=== PATIENT | male | born 1955 | race Caucasian/White ===

== ENCOUNTER 2018-08-04 17:39 | Inpatient (IN) | payer OTHER ==
[~2018-08-04] VITALS: Ht 175.3 cm; Wt 101.6 kg
--- NOTE | ~2018-08-04 | CON ---
[address] [address] CONSULTATION Name: NIMO VILLEDA Room: [address] IN .R.#: [id number] Admission: 08/04/18 Attend Phys: Lilian Thompson MD Discharge: 08/05/18 Date of : 57 Report #: [id number] THIS REPORT FOR: //name// CC: Mohamud Thompson TYPE OF REPORT: Cardiology consultation. INDICATION: Elevated troponin. HISTORY OF PRESENT ILLNESS: The patient is a 62-year-old gentleman who was admitted with left flank pain. He has a history of prostate cancer, hepatic cirrhosis, renal mass and alcohol abuse. During his hospitalization, troponins were checked. The initial troponin was less than 0.06, then 0.16, then 0.38, then 0.38 and less than 0.06, then 0.40 and then 0.26. Throughout this, he denied any chest pain. He has no cardiac history. Cardiac evaluation consisting of noninvasive evaluation was deferred by the patient. A 12-lead EKG showed sinus rhythm without acute ST or T-wave abnormalities. PAST MEDICAL HISTORY: 1. Prostate cancer. 2. Left renal mass. 3. History of hypertension. 4. History of cirrhosis. 5. History of colectomy. 6. Alcohol abuse. HOME MEDICATIONS: Quinapril 40 mg daily, Flomax 0.4 mg daily, tramadol 50 mg q. 6 hours p.r.n. and Xifaxan 550 mg daily. ALLERGIES: None documented. FAMILY HISTORY: The patient's mother had heart disease in her late 50s or early 60s. The patient's father at young age, his relatives did not have heart disease. SOCIAL HISTORY: The patient is a lifelong nonsmoker, drinks alcohol daily. He is . He lives with his . REVIEW OF SYSTEMS: Positive for shortness of breath and cough. Otherwise, unremarkable. PHYSICAL EXAMINATION: VITAL SIGNS: Stable. Blood pressure 104/63 and pulse 88 and regular. GENERAL: This is a pleasant gentleman who is in no distress. HEENT: The patient is wearing glasses. Extraocular muscles intact. [place] [address] CONSULTATION Name: NIMO VILLEDA Room: [address]#: [id number] Admission: 08/04/18 Attend Phys: Lilian Thompson MD Discharge: 08/05/18 Date of : 57 Report #: [id number] NECK: Shows no jugular venous distention. There are no carotid bruits. CHEST: Reveals clear lung chapman. CARDIOVASCULAR: Reveals a regular rhythm. Normal S1 and S2. I do not appreciate gallop or murmur. ABDOMEN: Reveals normal bowel sounds. The abdomen is soft and nontender. EXTREMITIES: Shows no edema. Peripheral pulses 2+ and palpable. SKIN: Warm and dry. IMPRESSION AND RECOMMENDATIONS: 1. Elevated troponins, likely a chronic issue. There is no rhyme or reason to the progression of his troponins during this hospitalization. He is not having any symptoms to suggest acute coronary syndrome. I would like to follow up with the patient as an outpatient in 2 weeks to see whether or not further stress testing is warranted. 2. Hypertension, presently stable. 3. Prostate cancer and renal mass being followed by outside Oncology. At this point in time, I believe the patient could be safely discharged home to follow up as an outpatient. By: 1446 [id number] Robertson MD, FACC /nt
[~2018-08-04 17:39] MED LIST: QUINU10 PD PO; VENTOLIN HFA 1818 GM INH; ZPAK PO
[2018-08-04] MEDS ORDERED: QUINAPRIL HCL40 MG PO (17:46)
[2018-08-04] MEDS ORDERED: FLOMAX0.4 MG PO (17:46)
[2018-08-04] MEDS ORDERED: TRAMADOL 50 MG50 MG PO (17:47)
[2018-08-04] MEDS ORDERED: XIFAXAN550 M1 PO (17:47)
[2018-08-04 18:10] LABS: ABSOLUTE BASOPHILS 0.1 thou/uL (0.0-0.2); ABSOLUTE EOSINOPHILS 0.1 thou/uL (0.0-0.7); ABSOLUTE LYMPHOCYTES 2.8 thou/uL (0.8-5.3); ABSOLUTE MONOCYTES 1.3 thou/uL (0.0-1.2); ABSOLUTE NEUTROPHILS 7.8 thou/uL (1.6-8.1); BASOPHILS 0.7 %; EOSINOPHILS 0.8 %; HEMATOCRIT 58.1 % (42.0-52.0); HEMOGLOBIN 19.6 gm/dL (14.0-18.0); MCH 30.5 pg (26.0-34.0); MCHC 33.8 g/dL (28.0-37.0); MCV 90.1 fL (80.0-100.0); MPV 7.3 fl. (7.2-11.1); NUCLEATED RBCS 0 /100WBC; PLATELET COUNT* 237 thou/uL (150-400); POLYS 64.5 %; RBC 6.44 mil/uL (4.50-6.00); RDW-CV 15.9 % (10.5-14.5); WBC 12.1 thou/uL (4.0-11.0)
[2018-08-04 18:27] LABS: APTT 20.5 Seconds (25.0-31.3); INR 1.2; PROTIME 12.4 Seconds (9.20-11.50)
[2018-08-04 18:30] LABS: ANION GAP 13 mmol/L (7-16); BUN 15 mg/dL (7-18); CALCIUM 11.1 mg/dL (8.5-10.1); CHLORIDE 105 mmol/L (98-107); CO2 23 mmol/L (21-32); GLUCOSE 104 mg/dL (70-99); SODIUM 141 mmol/L (136-145); TROPONIN-I LEVEL <0.06 ng/mL (<0.06)
[2018-08-04 18:31] LABS: POTASSIUM 3.7 mmol/L (3.5-5.1)
[2018-08-04 18:33] LABS: ALBUMIN 3.4 g/dL (3.4-5.0); ALKALINE PHOSPHATASE 133 U/L (46-116); CK-MB MASS 0.9 ng/mL (<0.5-3.6); LIPASE 383 U/L (73-393); MAGNESIUM 1.8 mg/dL (1.8-2.4); NT-PRO BRAIN NAT PEPTIDE 681 pg/mL (<300); SGOT 54 U/L (15-37); SGPT 26 U/L (30-65); TOTAL BILIRUBIN 1.2 mg/dL (<0.1-1.0); TOTAL PROTEIN 7.5 g/dL (6.4-8.2)
[2018-08-04 20:49] VITALS: BP 186/104
[2018-08-04 21:26] LABS: URINE BILIRUBIN NEGATIVE (Negative); URINE BLOOD NEGATIVE (Negative); URINE CLARITY CLEAR; URINE COLOR YELLOW; URINE GLUCOSE-RANDOM NEGATIVE (Negative); URINE KETONES NEGATIVE (Negative); URINE LEUKOCYTES-REFLEX TRACE (Negative); URINE NITRITE-REFLEX NEGATIVE (Negative); URINE PROTEIN NEGATIVE (Negative); URINE SPECIFIC GRAVITY 1.015 (1.005-1.030); URINE UROBILINOGEN 0.2 E.U./dl (0.2-1.0)
[2018-08-04 21:32] LABS: AMP/METHAMP Negative (Negative); BARBITURATES Negative (Negative); BENZODIAZEPINES Negative (Negative); COCAINE Negative (Negative); METHADONE Negative (Negative); OPIATES Negative (Negative); PCP Negative (Negative); THC POSITIVE (Negative)
[2018-08-04 21:45] VITALS: BP 191/98
[2018-08-04 22:17] LABS: CASTS None Seen /LPF (None Seen); SQUAMOUS NONE SEEN /LPF (0-3)
[2018-08-04 22:18] LABS: BACTERIA-REFLEX 1-9 Few /HPF (None Seen); CRYSTALS None Seen /LPF (None Seen); URINE RBC None Seen /HPF (0-2); URINE WBC-REFLEX 0-5 Rare /HPF (0-5)
[2018-08-04 23:55] VITALS: BP 161/86
--- NOTE | 2018-08-05 01:41 | NUR ---
RECEIVED REPORT AND ASSUMED CARE AT 2105. PT TRANSPORTED FROM ED TO ROOM 227. BP ELEVATED, PT REPORTS PAIN IN BACK. OTHERWISE VSS. PRN MEDICATION ADMIN PER ORDERS FOR BP AND PAIN. PT ORIENTATED TO ROOM, CALL LIGHT, FALL POLICY. ASSESSMENT COMPLETED CHARTED. ADMISSION COMPLETED BY NURSING. PT UP SBA ON 2LNC PRN. BED LOCKED IN LOWEST POSITION, CALL LIGHT WITHIN REACH
[2018-08-05 01:49] LABS: ABSOLUTE BASOPHILS 0.1 thou/uL (0.0-0.2); ABSOLUTE LYMPHOCYTES 1.7 thou/uL (0.8-5.3); ABSOLUTE MONOCYTES 1.6 thou/uL (0.0-1.2); ABSOLUTE NEUTROPHILS 13.4 thou/uL (1.6-8.1); BASOPHILS 0.3 %; EOSINOPHILS 0.1 %; HEMATOCRIT 54.7 % (42.0-52.0); HEMOGLOBIN 18.4 gm/dL (14.0-18.0); MCH 30.4 pg (26.0-34.0); MCHC 33.6 g/dL (28.0-37.0); MCV 90.4 fL (80.0-100.0); MONOCYTES 9.8 %; MPV 7.4 fl. (7.2-11.1); NUCLEATED RBCS 0 /100WBC; PLATELET COUNT* 221 thou/uL (150-400); POLYS 79.8 %; RBC 6.05 mil/uL (4.50-6.00); RDW-CV 15.8 % (10.5-14.5); WBC 16.8 thou/uL (4.0-11.0)
[2018-08-05 02:11] LABS: CALCIUM 9.6 mg/dL (8.5-10.1); CREATININE 0.7 mg/dL (0.6-1.3); MAGNESIUM 1.5 mg/dL (1.8-2.4); PHOSPHORUS* 3.8 mg/dL (2.5-4.9); POTASSIUM 3.2 mmol/L (3.5-5.1); TROPONIN-I LEVEL 0.38 ng/mL (<0.06)
[2018-08-05 04:00] VITALS: BP 156/84
[2018-08-05 08:00] VITALS: BP 132/84
--- NOTE | 2018-08-05 09:49 | NUR ---
0703 ASSUMED CARE OF PATIENT. SEE DOCUMENTED ASSESSMENT. PT DENIES CHEST PAIN. NSR.
[2018-08-05 11:41] VITALS: BP 104/63
--- NOTE | 2018-08-05 11:45 | NUR ---
UPON ATTEMPTING TO COMPLETE OT EVALUATION, PT STATES HE DOES NOT WANT NOR REQUIRE OT SERVICES HE IS ABLE TO COMPLETE ADLS AND AMBULATION WITH NO ASSIST. PER PT REQUEST DISCHARGE OT EVAL
[2018-08-05] MEDS ORDERED: FOLIC ACID1 MG PO (12:40)
[2018-08-05] MEDS ORDERED: PROTONIX40 M1 PO (12:49)
[2018-08-05] MEDS ORDERED: ASPIRIN81 M2 PO (12:49)
--- NOTE | 2018-08-05 12:53 | EKG ---
[place] [address] ELECTROCARDIOGRAM REPORT Name: NIMO VILLEDA Room: [place] [address] ADM IN .R.#: [id number] Admission: 08/04/18 Attend Phys: Lilian Thompson MD Discharge: Date of : 57 Report #: [id number] THIS REPORT FOR: //name// [facility] ED Test Date: 2018-08-04 Test Time: 17:43:27 Pat Name: NIMO VILLEDA Department: Room: [facility] Gender: Instructional Designer: TOMMY : 1955 Requested By: Uriel Munoz Order Number: [id number] MD: Mike Cruz Measurements Intervals [place] Rate: 82 P: 36 CT: 173 QRS: 6 QRSD: 82 T: -4 QT: 341 QTc: 399 Interpretive Statements Sinus rhythm Paired ventricular premature complexes Borderline repolarization abnormality Compared to ECG 12/08/2014 17:02:42 Ventricular premature complex(es) now present Electronically Signed On 08-05-2018 12:53:00 CENTRIFUGE SEPARATOR OPERATOR by Mike Cruz [email or web address] <ELECTRONICALLY SIGNED> By: Mike Cruz MD, [facility] 08/05/18 1253 1743 1743 Mike Cruz MD, [facility] /EPI
--- NOTE | 2018-08-05 12:56 | EKG ---
[place] [address] ELECTROCARDIOGRAM REPORT Name: NIMO VILLEDA Room: [place] [address] ADM IN .R.#: [id number] Admission: 08/04/18 Attend Phys: Lilian Thompson MD Discharge: Date of : 57 Report #: [id number] THIS REPORT FOR: //name// [facility] Test Date: 2018-08-05 Test Time: 02:25:37 Pat Name: NIMO VILLEDA Department: Room: [place] [address] Gender: M Film Touch Up Inspector: : 1955 Requested By: Lilian Thompson Order Number: [id number] Reading MD: Mike Cruz Measurements Intervals [place] Rate: 96 P: 56 CT: 169 QRS: 13 QRSD: 82 T: 12 QT: 365 QTc: 462 Interpretive Statements Sinus rhythm Left atrial enlargement Borderline low voltage, extremity leads Probable anteroseptal infarct, old Baseline wander in lead(s) V1,V2 Compared to ECG 12/08/2014 17:02:42 Atrial abnormality now present Myocardial infarct finding now present T-wave abnormality no longer present Electronically Signed On 08-05-2018 12:56:08 SHIRT PRESSER by Mike Cruz [email or web address] <ELECTRONICALLY SIGNED> By: Mike Cruz MD, [facility] 08/05/18 1256 0225 Mike Cruz MD, FAC /EPI
--- NOTE | 2018-08-05 13:54 | NUR ---
MAGNESIUM STARTED WHEN MADE AVAILABLE.DR DALY VISITED WITH FAMILY.
[2018-08-05 16:00] VITALS: BP 115/59
[2018-08-05 16:20] VITALS: BP 115/59
--- NOTE | 2018-08-05 16:33 | 2DMMODE ---
[place] [address] 2 D/M-MODE ECHOCARDIOGRAM Name: NIMO VILLEDA Room: [facility] IN [facility]#: [id number] Admission: 08/04/18 Attend Phys: Lilian Thompson MD Discharge: Date of : 57 Date of Service: 08/05/18 1633 Report #: [id number] THIS REPORT FOR: //name// APPROVED REPORT Study performed: 08/05/2018 13:56:00 EXAM: Comprehensive 2D, Doppler, and color-flow Echocardiogram Patient Location: In-Patient Room #: [facility] Status: routine BSA: 2.17 HR: 83 bpm BP: 104/63 mmHg Rhythm: NSR Other Information Study Quality: Good Indications Acute NC Dyspnea Chest Pain 2D Dimensions IVSd: 11.66 (7-11mm) LVOT Diam: 20.22 (18-24mm) LVDd: 49.98 mm PWd: 13.60 (7-11mm) Ascending Ao: 35.67 (22-36mm) LVDs: 24.24 (25-40mm) Aortic Root: 32.28 mm Volumes Left Atrial Volume (Systole) LA ESV Index: 36.90 mL/m2 Aortic Valve AoV Peak Khanh.: 1.52 m/s AO Peak Gr.: 9.19 mmHg LVOT Max P.65 mmHg AO Mean Gr.: 4.86 mmHg LVOT Mean P.60 mmHg LVOT Max V: 1.29 m/s AO V2 VTI: 26.31 cm LVOT Mean V: 0.88 m/s DHEERAJ (VTI): 3.29 cm2 LVOT V1 VTI: 26.98 cm Mitral Valve E/A Ratio: 1.04 [place] [address] 2 D/M-MODE ECHOCARDIOGRAM Name: NIMO VILLEDA Room: [address] IN .R.#: [id number] Admission: 08/04/18 Attend Phys: Lilian Thompson MD Discharge: Date of : 57 Date of Service: 08/05/18 1633 Report #: [id number] MV Decel. Time: 302.50 ms MV E Max Khanh.: 0.64 m/s MV PHT: 87.73 ms MVA (PHT): 2.51 cm2 TDI E/Lateral E': 4.92 E/Medial E': 9.14 Medial E' Khanh.: 0.07 m/s Lateral E' Khanh.: 0.13 m/s Pulmonary Valve PV Peak Khanh.: 1.03 m/s PV Peak Gr.: 4.27 mmHg Left Ventricle The left ventricle is normal size. There is normal LV segmental wall motion. There is normal left ventricular wall thickness. Left ventricular systolic function is normal. The left ventricular ejection fraction is within the normal range. LVEF is 65%. The left ventricular diastolic function is normal. Right Ventricle The right ventricle is normal size. The right ventricular systolic function is normal. Atria Left atrium is mildly dilated. The right atrium size is normal. Aortic Valve The aortic valve is normal in structure. No aortic regurgitation is present. There is no aortic valvular stenosis. Mitral Valve The mitral valve is normal in structure. There is no mitral valve regurgitation noted. No evidence of mitral valve stenosis. Tricuspid Valve The tricuspid valve is normal in structure. Trace tricuspid regurgitation. Unable to assess PA pressure. Pulmonic Valve The pulmonary valve is normal in structure. There is no pulmonic valvular regurgitation. Great Vessels The aortic root is normal in size. IVC is [place] [address] 2 D/M-MODE ECHOCARDIOGRAM Name: NIMO VILLEDA Room: [address] IN [facility]#: [id number] Admission: 08/04/18 Attend Phys: Lilian Thompson MD Discharge: Date of : 57 Date of Service: 08/05/18 1633 Report #: [id number] collapses >50% with inspiration. Pericardium There is no pericardial effusion. <Conclusion> The left ventricle is normal size. There is normal left ventricular wall thickness. Left ventricular systolic function is normal. The left ventricular ejection fraction is within the normal range. LVEF is 65%. The right ventricle is normal size. Left atrium is mildly dilated. The aortic valve is normal in structure. The mitral valve is normal in structure. The tricuspid valve is normal in structure. IVC is normal in size and collapses >50% with inspiration. There is no pericardial effusion. There is normal LV segmental wall motion. <ELECTRONICALLY SIGNED> By: Mike Cruz MD, [facility] 08/05/18 1633 1633 1633 Mike Cruz MD, FACC /INF
== END 2018-08-05 17:30 | disposition home or self-care (01) | DRG 700 ==
LOC: M.ERS 17:39 → M.2W 18:46 → M.TBA-ER 18:46 → M.2W 20:57
PROVIDERS: Family Medicine; ADMIT Family Medicine
DX: N28.89 Other specified disorders of kidney and ureter (principal); K74.60 Unspecified cirrhosis of liver; F10.10 Alcohol abuse, uncomplicated; N18.2 Chronic kidney disease, stage 2 (mild); N40.0 Benign prostatic hyperplasia without lower urinary tract symptoms; I12.9 Hypertensive chronic kidney disease with stage 1 through stage 4 chronic kidney disease, or unspecified chronic kidney disease; Z85.46 Personal history of malignant neoplasm of prostate; Z90.49 Acquired absence of other specified parts of digestive tract; Z79.899 Other long term (current) drug therapy; Z82.49 Family history of ischemic heart disease and other diseases of the circulatory system

== ENCOUNTER 2019-10-17 00:24 | Inpatient (IN) | payer OTHER ==
[2019-10-17] VITALS (93 sets, daily range): BP systolic 55–151; BP diastolic 27–71
[~2019-10-17] VITALS: Ht 180.3 cm; Wt 128.0 kg
--- NOTE | ~2019-10-17 | EEG ---
[address] [address] EEG STUDY REPORT Name: NIMO VILLEDA Room: [address] IN [facility]#: [id number] Admission: 10/17/19 Attend Phys: Isha Rizvi MD Discharge: Date of : 57 Report #: [id number] THIS REPORT FOR: //name// CC: Isha Rizvi Venus Nidia DATE OF SERVICE: 10/20/2019 This patient is being evaluated for altered mental status. EEG was done by placing the electrode by standard 10-20 system of electrode placement. Both referential and sequential montages were used for recording. Background activity in this patient's EEG is markedly suppressed. It is very low voltage. Difficult to determine the background activity. It does appear to be about 5 Hz and less than 10 microvolt. Photic stimulation is unremarkable. No active epileptiform activity was noticed. IMPRESSION: This is a severely abnormal EEG consistent with a diagnosis of encephalopathy. Clinical correlation is recommended. By: 1513 1540Luan Kelley MD /nt
[~2019-10-17 00:24] MED LIST changes: +ASPIRIN81 M2 PO; +FLOMAX0.4 MG PO; +FOLIC ACID1 MG PO; +PROTONIX40 M1 PO; +QUINAPRIL HCL40 MG PO; +TRAMADOL 50 MG50 MG PO; +XIFAXAN550 M1 PO
[2019-10-17 00:52] LABS: HEMATOCRIT 59.9 % (42.0-52.0); HEMOGLOBIN 20.6 gm/dL (14.0-18.0); MCH 29.3 pg (26.0-34.0); MCHC 34.3 g/dL (28.0-37.0); MCV 85.3 fL (80.0-100.0); MPV 9.4 fl. (7.2-11.1); NUCLEATED RBCS 0 /100WBC; PLATELET COUNT* 102 thou/uL (150-400); RBC 7.02 mil/uL (4.50-6.00); RDW-CV 15.9 % (10.5-14.5)
[2019-10-17 00:56] LABS: WBC 40.1 thou/uL (4.0-11.0)
[2019-10-17 01:02] LABS: BE -5.2 mmol/L (-2 to +3); pH 7.503 (7.340-7.450)
[2019-10-17 01:06] LABS: PCO2 17.4 mmHg (35.0-45.0)
[2019-10-17 01:07] LABS: CALCIUM 9.6 mg/dL (8.5-10.1); CREATININE 1.7 mg/dL (0.6-1.3); POTASSIUM 3.7 mmol/L (3.5-5.1)
[2019-10-17 01:07] LABS: PO2 197.8 mmHg (75.0-100.0)
[2019-10-17 01:17] LABS: ALBUMIN 2.4 g/dL (3.4-5.0); MAGNESIUM 2.1 mg/dL (1.8-2.4); TOTAL BILIRUBIN 4.8 mg/dL (<0.1-1.0); TOTAL PROTEIN 6.6 g/dL (6.4-8.2)
[2019-10-17 01:20] LABS: INR 1.6; PROTIME 16.2 Seconds (9.20-11.50)
[2019-10-17 01:23] LABS: URINE BILIRUBIN 2+ (Negative); URINE BLOOD 3+ (Negative); URINE CLARITY CLEAR; URINE COLOR DARK YELLOW; URINE GLUCOSE-RANDOM NEGATIVE (Negative); URINE KETONES TRACE (Negative); URINE LEUKOCYTES-REFLEX 2+ (Negative); URINE NITRITE-REFLEX NEGATIVE (Negative); URINE PROTEIN TRACE (Negative); URINE SPECIFIC GRAVITY 1.015 (1.005-1.030)
[2019-10-17 01:31] LABS: ICTOTEST (BILI CONFIRMATORY) Positive (Negative)
[2019-10-17 01:32] LABS: SQUAMOUS 0-3 Few /LPF (0-3)
[2019-10-17 01:33] LABS: AMORPHOUS URATES Moderate /LPF (None Seen); BACTERIA-REFLEX >30 Many /HPF (None Seen); CELLULAR CASTS 0-3 Few /LPF (None Seen); COARSE GRANULAR CASTS 0-3 Few /LPF (None Seen); FINE GRANULAR CASTS 4-10 Moderate /LPF (None Seen); HYALINE CASTS 0-3 Few /LPF (None Seen); MUCUS 4-6 Moderate strn/LPF (None Seen); URINE RBC >20 Many /HPF (0-2); WBC CLUMPS Few (None Seen)
[2019-10-17 02:02] LABS: ABSOLUTE MONOCYTES 1.6 thou/uL (0.0-1.2); ABSOLUTE NEUTROPHILS 36.5 thou/uL (1.6-8.1); ANISOCYTOSIS 1+; HYPOCHROMASIA 1+; PLATELET ESTIMATE DECREASED; TOXIC GRANULATION 2+
[2019-10-17 04:05] LABS: AMP/METHAMP Negative (Negative); BARBITURATES Negative (Negative); BENZODIAZEPINES Negative (Negative); COCAINE Negative (Negative); METHADONE Negative (Negative); OPIATES Negative (Negative); PCP Negative (Negative); THC POSITIVE (Negative)
[2019-10-17 08:32] LABS: MCHC 34.2 g/dL (28.0-37.0); MCV 84.7 fL (80.0-100.0); MPV 9.3 fl. (7.2-11.1); RBC 6.25 mil/uL (4.50-6.00); RDW-CV 15.3 % (10.5-14.5)
[2019-10-17 08:35] LABS: HEMOGLOBIN 18.1 gm/dL (14.0-18.0)
[2019-10-17 09:01] LABS: ALBUMIN 1.8 g/dL (3.4-5.0); CALCIUM 8.1 mg/dL (8.5-10.1); CK-MB MASS 20.5 ng/mL (<0.5-3.6); CREATININE 1.5 mg/dL (0.6-1.3); POTASSIUM 3.2 mmol/L (3.5-5.1); TOTAL BILIRUBIN 4.4 mg/dL (<0.1-1.0)
[2019-10-17 10:31] LABS: BE -7.9 mmol/L (-2 to +3); PCO2 25.1 mmHg (35.0-45.0); pH 7.386 (7.340-7.450)
[2019-10-17 10:33] LABS: PO2 169.9 mmHg (75.0-100.0)
--- NOTE | 2019-10-17 10:51 | EKG ---
[place] [address] ELECTROCARDIOGRAM REPORT Name: NIMO VILLEDA Room: [address] ADM IN .R.#: [id number] Admission: 10/17/19 Attend Phys: Isha Rizvi, Discharge: Date of : 57 Date of Service: 10/17/19 0028 Report #: [id number] THIS REPORT FOR: //name// [facility] ED Test Date: 2019-10-17 Test Time: 00:28:10 Pat Name: NIMO VILLEAD Department: Room: [facility] Gender: M Kiln Fireman: ISADORA : 1955 Requested By: Irene Bergeron Order Number: [id number] MD: Eyad Escobedo Measurements Intervals [place] Rate: 156 P: [place]: QRS: 14 QRSD: 81 T: 0 QT: 270 QTc: 435 Interpretive Statements Atrial fibrillation Low voltage, extremity leads Anteroseptal infarct, old Borderline ST elevation, lateral leads Baseline wander in lead(s) V1 Compared to ECG 08/05/2018 02:25:37 ST (T wave) deviation now present Sinus rhythm no longer present Atrial abnormality no longer present Myocardial infarct finding still present Consider acute lateral NE Electronically Signed On 10-17-2019 10:49:23 CDT by Eyad Escobedo [email or web address] <ELECTRONICALLY SIGNED> By: Elif Escobedo MD, [facility] 10/17/19 1049 0028 Elif Escobedo MD, [facility] /EPI
[2019-10-17 14:07] LABS: CREATININE 1.7 mg/dL (0.6-1.3); POTASSIUM 3.6 mmol/L (3.5-5.1)
--- NOTE | 2019-10-17 14:24 | CON ---
[address] [address] CONSULTATION Name: NIMO VILLEDA Room: [address] IN .R.#: [id number] Admission: 10/17/19 Attend Phys: Isha Rizvi MD Discharge: Date of : 57 Report #: [id number] THIS REPORT FOR: //name// cc: Venus Jacob Sarah Anne FNP ~ THIS REPORT FOR: //name// CC: Isha Jacob DATE OF SERVICE: 10/17/2019 I was asked to see this 63-year-old gentleman for acute respiratory failure, septic shock. HISTORY OF PRESENT ILLNESS: The patient is currently on the ventilator and sedated, he is not able to give me any information. He is currently on propofol, Davis-Synephrine, IV fluid and Cardizem drip. All of the information was obtained from chart, nursing staff and attending physician. He was brought to the Emergency Room via EMS for altered mental status. His stated that he has had altered mental status for the past 2 days. He fell. He drinks heavily. He was intubated secondary to being tachypneic and for airway protection earlier this morning. He is currently on the ventilator. He is sedated. He does not follow commands. PAST MEDICAL HISTORY: Colectomy, hypertension, prostate cancer, cirrhosis, renal mass, which he was supposed to have a workup, but apparently he did not have workup as an outpatient. ALLERGIES: No known drug allergies. MEDICATIONS: Currently, he is on propofol, Cardizem drip, IV fluid, vancomycin, heparin drip, Zosyn. SOCIAL HISTORY: Positive for smoking and alcohol abuse, details are not known. FAMILY HISTORY: Hypertension per chart. REVIEW OF SYSTEMS: As mentioned as above. I have discussed the patient with RN, RT, and attending physician. Other systems are otherwise negative. PHYSICAL EXAMINATION: GENERAL: This is an overweight gentleman. VITAL SIGNS: His O2 saturation 100%, FiO2 is 100%, respiratory rate 30, heart rate 104, blood pressure 95/38, heart rate 97, temperature 38.2. HEENT: Normocephalic, atraumatic. Pupils equal, round, [place] [address] CONSULTATION Name: NIMO VILLEDA Antonio Room: [address]#: [id number] Admission: 10/17/19 Attend Phys: Isha Rizvi MD Discharge: Date of : 57 Report #: [id number] is orally intubated. Nose is clear. NECK: No lymphadenopathy or thyromegaly. CARDIOVASCULAR: Irregularly irregular rhythm. CHEST: Inspection, he appears tachypneic. LUNGS: There are bibasilar crackles, dullness at the bases. ABDOMEN: Distended, but soft. There is no mass. EXTREMITIES: There is edema. LYMPHATICS: There is no lymphadenopathy. NEUROLOGIC: He is on the ventilator, sedated. LABORATORY DATA: I reviewed the following lab data: Chest x-ray shows ET tube is in good position. There is left mid lung and lower lobe infiltrate, right lower lobe infiltrate. CT of abdomen did show large left renal mass, left renal interpolar region, suspected wedge-shaped infarction, cirrhosis. CT of head did not show any acute abnormalities. CT of the chest was suboptimal study, but there was no definite pulmonary embolism detected, right basilar infiltrates/atelectasis, left apical nodule semi-solid 1.2 x 1.2 x 1.8 cm, right upper lobe 6 mm nodule. WBC 48, hemoglobin 18.1, platelet 64. Sodium 134, potassium 3.2, chloride 104, CO2 of 16, BUN 39, creatinine 1.5. Lactic acid 4. Ferritin 1857, AST 333, ALT 92, alkaline phosphatase 181. Ammonia less than 10. CK 417, troponin 12.12. BNP 10,588, lipase 527. His urine drug screen was positive for marijuana. INR 1.6. D-dimer 17.3. IMPRESSION: 1. Acute respiratory failure, multifactorial in etiology including septic shock, atrial fibrillation with rapid ventricular response, probably myocardial infarction, congestive heart failure, versus others. 2. Abnormal chest x-ray and CT of chest. 3. Septic shock. 4. Atrial fibrillation with rapid ventricular response. 5. Elevated troponin? Myocardial infarction. 6. Cirrhosis. 7. Alcohol abuse. 8. Encephalopathy. 9. Acute kidney injury. 10. Leukocytosis. 11. COVID-19, patient under investigation. PLAN AND RECOMMENDATIONS: 1. Titrate FiO2 to keep O2 saturation 94%. 2. Continue ventilator support until the patient is more stable. 3. Ventilator setting and ABG reviewed. 4. Agree with antibiotic and ID consultation. 5. Agree with IV fluid. 6. Cardiology is on the case. The patient is started on heparin. 7. Start Protonix for stress ulcer prophylaxis. [address] [place] [address] CONSULTATION Name: NIMO VILLEDA Room: [address] IN M.R.#: [id number] Admission: 10/17/19 Attend Phys: Isha Rizvi MD Discharge: Date of : 57 Report #: [id number] 8. Follow up COVID-19 testing. 9. I will start him on fentanyl drip and try to go down on propofol as he is hypotensive. 10. Continue Cardizem drip per Cardiology. 11. The findings and recommendations were discussed with RN, RT and Dr. Rizvi, attending physician. Thank you very much for allowing me to participate in care of this very nice gentleman. The patient is critically ill. This is critical care time 32 minutes without overlap. <ELECTRONICALLY SIGNED> By: Zhanna Mendoza MD 10/17/19 1424 1109 1156Zhanna Mendoza MD /nt
[2019-10-17 21:47] LABS: HEMATOCRIT 47.9 % (42.0-52.0); HEMOGLOBIN 16.3 gm/dL (14.0-18.0); MCH 29.4 pg (26.0-34.0); MCHC 34.1 g/dL (28.0-37.0); MCV 86.2 fL (80.0-100.0); MPV 10.1 fl. (7.2-11.1); RBC 5.56 mil/uL (4.50-6.00); RDW-CV 15.7 % (10.5-14.5)
[2019-10-17 21:49] LABS: WBC 47.2 thou/uL (4.0-11.0)
[2019-10-17 22:02] LABS: APTT 30.9 Seconds (25.0-31.3); INR 1.5; PROTIME 15.3 Seconds (9.20-11.50)
[2019-10-17 22:16] LABS: MAGNESIUM 2.1 mg/dL (1.8-2.4); POTASSIUM 3.5 mmol/L (3.5-5.1)
[2019-10-17 22:21] LABS: CALCIUM 8.1 mg/dL (8.5-10.1)
[2019-10-18] VITALS (141 sets, daily range): BP systolic 60–121; BP diastolic 27–73
[2019-10-18 05:01] LABS: BE -6.1 mmol/L (-2 to +3); PCO2 28.4 mmHg (35.0-45.0); pH 7.394 (7.340-7.450)
[2019-10-18 05:02] LABS: HEMATOCRIT 47.6 % (42.0-52.0); HEMOGLOBIN 16.1 gm/dL (14.0-18.0); MCH 29.1 pg (26.0-34.0); MCHC 33.8 g/dL (28.0-37.0); MCV 86.1 fL (80.0-100.0); MPV 10.1 fl. (7.2-11.1); RBC 5.53 mil/uL (4.50-6.00)
[2019-10-18 05:03] LABS: WBC 43.4 thou/uL (4.0-11.0)
[2019-10-18 05:25] LABS: ALBUMIN 1.5 g/dL (3.4-5.0); CALCIUM 7.7 mg/dL (8.5-10.1); CREATININE 2.1 mg/dL (0.6-1.3); DIRECT BILIRUBIN 2.6 mg/dL (<0.1-0.3); POTASSIUM 3.3 mmol/L (3.5-5.1); TOTAL BILIRUBIN 3.4 mg/dL (<0.1-1.0); TOTAL PROTEIN 4.5 g/dL (6.4-8.2)
[2019-10-18 06:08] LABS: HEPATITIS B SURFACE AG Negative (Negative)
[2019-10-18 09:37] LABS: INFLUENZA A ANTIGEN Negative (Negative); INFLUENZA B ANTIGEN Negative (Negative)
--- NOTE | 2019-10-18 15:37 | EKG ---
[place] [address] ELECTROCARDIOGRAM REPORT Name: NIMO VILLEDA Room: [address] ADM IN M.R.#: [id number] Admission: 10/17/19 Attend Phys: Isha Rizvi, Discharge: Date of : 57 Date of Service: 10/18/19 0741 Report #: [id number] THIS REPORT FOR: //name// [facility] Test Date: 2019-10-18 Test Time: 07:41:11 Pat Name: NIMO BELLN Department: Room: [address] Gender: M Wafer Mounter: THOMAS : 1955 Requested By: Elif Escobedo Order Number: [id number] Reading MD: Eyad Escobedo Measurements Intervals [place] Rate: 108 P: [place]: QRS: 5 QRSD: 90 T: -57 QT: 328 QTc: 440 Interpretive Statements Atrial fibrillation Low voltage, extremity leads Compared to ECG 10/17/2019 00:28:10 Myocardial infarct finding no longer present ST (T wave) deviation no longer present Electronically Signed On 10-18-2019 15:35:23 CDT by Eyad Escobedo [email or web address] <ELECTRONICALLY SIGNED> By: Elif Escobedo MD, [facility] 10/18/19 1535 0741 0741 Elif Escobedo MD, [facility] /EPI
[2019-10-19] VITALS (107 sets, daily range): BP systolic 45–146; BP diastolic 19–124
[2019-10-19 05:36] LABS: HEMATOCRIT 49.8 % (42.0-52.0); HEMOGLOBIN 16.7 gm/dL (14.0-18.0); MCH 29.2 pg (26.0-34.0); MCHC 33.6 g/dL (28.0-37.0); MCV 86.9 fL (80.0-100.0); MPV 10.3 fl. (7.2-11.1); RDW-CV 15.9 % (10.5-14.5)
[2019-10-19 05:45] LABS: ALBUMIN 1.5 g/dL (3.4-5.0); CALCIUM 7.6 mg/dL (8.5-10.1); CREATININE 2.5 mg/dL (0.6-1.3); POTASSIUM 3.9 mmol/L (3.5-5.1); RBC 5.73 mil/uL (4.50-6.00); TOTAL BILIRUBIN 4.2 mg/dL (<0.1-1.0); WBC 42.7 thou/uL (4.0-11.0)
[2019-10-19 10:31] LABS: BE -10.9 mmol/L (-2 to +3); PCO2 25.9 mmHg (35.0-45.0); PO2 70.8 mmHg (75.0-100.0); pH 7.318 (7.340-7.450)
[2019-10-20] VITALS (65 sets, daily range): BP systolic 42–146; BP diastolic 20–67
[2019-10-20 04:12] LABS: HEMATOCRIT 49.4 % (42.0-52.0); HEMOGLOBIN 16.4 gm/dL (14.0-18.0); MCHC 33.1 g/dL (28.0-37.0); MCV 87.4 fL (80.0-100.0); RBC 5.65 mil/uL (4.50-6.00); RDW-CV 16.5 % (10.5-14.5)
[2019-10-20 04:20] LABS: WBC 43.4 thou/uL (4.0-11.0)
[2019-10-20 04:28] LABS: ALBUMIN 1.2 g/dL (3.4-5.0); CALCIUM 7.1 mg/dL (8.5-10.1); CREATININE 3.2 mg/dL (0.6-1.3); MAGNESIUM 2.1 mg/dL (1.8-2.4); POTASSIUM 4.7 mmol/L (3.5-5.1); TOTAL BILIRUBIN 4.2 mg/dL (<0.1-1.0)
[2019-10-20 05:50] LABS: BE -14.1 mmol/L (-2 to +3); PO2 86.1 mmHg (75.0-100.0)
[2019-10-20 05:52] LABS: pH 7.126 (7.340-7.450)
--- NOTE | 2019-10-20 11:35 | CON ---
[address] [address] CONSULTATION Name: NIMO VILLEDA Room: [address] IN ..#: [id number] Admission: 10/17/19 Attend Phys: Isha Rizvi MD Discharge: Date of : 57 Report #: [id number] THIS REPORT FOR: //name// cc: Venus Jacob Sarah Anne FNP ~ THIS REPORT FOR: //name// CC: Isha Jacob DATE OF SERVICE: 10/18/2019 REQUESTING PHYSICIAN: Dr. Rizvi. REASON FOR CONSULTATION: Acute kidney injury. HISTORY OF PRESENT ILLNESS: The patient is a 63-year-old man with medical history significant for alcoholism, chronic chest pain, coronary artery disease. He refused a cardiac catheterization in the past, history of atrial fibrillation. He presents to the hospital with respiratory failure, diagnosed with a sepsis. His blood cultures revealed gram-positive cocci in 6/6 samples. His urine cultures also grew gram-positive cocci. His sputum cultures were pending. On admission, his white count is elevated at 40,000 and stays elevated. His creatinine was 1.7, it is 2.1 now, he is producing urine. He had 800 mL of urine. He had abdominal and pelvic CT that revealed very large left renal inferior pole mass 13 x 13 x 10 cm presumptive renal cell carcinoma. There is also a left renal interpolar region, suspected wedge-shaped infarction located along the inferior margin of the mass. SOCIAL HISTORY: Positive for alcoholism. FAMILY HISTORY: Noncontributory. REVIEW OF SYSTEMS: Unobtainable now as he is intubated and sedated. PHYSICAL EXAMINATION: GENERAL: Intubated, sedated. VITAL SIGNS: Blood pressure 98/36, heart rate 82, afebrile. HEENT: Pupils are round. NECK: Supple. LUNGS: Decreased air movements. CARDIOVASCULAR: Irregular rate. [place]BD[place]EN: [place] [address] CONSULTATION Name: MARLA VILLEDAER Antonio Room: [address]#: [id number] Admission: 10/17/19 Attend Phys: Isha Rizvi MD Discharge: Date of : 57 Report #: [id number] LOWER EXTREMITIES: No edema. LABORATORY REPORT: As I mentioned earlier. ASSESSMENT: 1. Acute kidney injury due to Staph aureus bacteremia with sepsis. 2. Staph aureus bacteremia and sepsis. 3. Large left renal mass. 4. Alcoholism. 5. Coronary artery disease. PLAN: 1. Supportive care. 2. Very poor chronic dialysis candidate. 3. His left renal mass will be addressed by urologist. Unfortunately, we do not have any urological coverage here as far as I know. <ELECTRONICALLY SIGNED> By: Ezekiel Dawn MD 10/20/19 1135 1036 1735AMD YAYO Lanza
[2019-10-21] VITALS (83 sets, daily range): BP systolic 83–129; BP diastolic 22–75
[2019-10-21 04:38] LABS: BE -11.9 mmol/L (-2 to +3); PCO2 33.1 mmHg (35.0-45.0)
[2019-10-21 04:46] LABS: pH 7.249 (7.340-7.450)
[2019-10-21 04:50] LABS: HEMATOCRIT 42.7 % (42.0-52.0); MCHC 33.4 g/dL (28.0-37.0); MPV 8.4 fl. (7.2-11.1); RBC 4.91 mil/uL (4.50-6.00); RDW-CV 16.3 % (10.5-14.5)
[2019-10-21 04:54] LABS: HEMOGLOBIN 14.3 gm/dL (14.0-18.0); WBC 24.7 thou/uL (4.0-11.0)
[2019-10-21 05:11] LABS: ALBUMIN 1.6 g/dL (3.4-5.0); CALCIUM 7.1 mg/dL (8.5-10.1); CREATININE 3.2 mg/dL (0.6-1.3); MAGNESIUM 2.3 mg/dL (1.8-2.4); POTASSIUM 4.2 mmol/L (3.5-5.1); TOTAL BILIRUBIN 10.3 mg/dL (<0.1-1.0); TOTAL PROTEIN 4.8 g/dL (6.4-8.2)
[2019-10-22] VITALS (55 sets, daily range): BP systolic 80–170; BP diastolic 23–79
[2019-10-22 04:43] LABS: BE -14.7 mmol/L (-2 to +3); PCO2 35.5 mmHg (35.0-45.0); PO2 76.4 mmHg (75.0-100.0)
[2019-10-22 04:45] LABS: pH 7.173 (7.340-7.450)
[2019-10-22 05:29] LABS: HEMATOCRIT 42.8 % (42.0-52.0); HEMOGLOBIN 14.2 gm/dL (14.0-18.0); MCH 29.2 pg (26.0-34.0); MCHC 33.2 g/dL (28.0-37.0); MCV 87.9 fL (80.0-100.0); MPV 9.1 fl. (7.2-11.1); RBC 4.87 mil/uL (4.50-6.00); RDW-CV 16.6 % (10.5-14.5); WBC 29.8 thou/uL (4.0-11.0)
[2019-10-22 05:41] LABS: ALBUMIN 1.9 g/dL (3.4-5.0); CALCIUM 6.9 mg/dL (8.5-10.1); CREATININE 3.4 mg/dL (0.6-1.3); MAGNESIUM 2.4 mg/dL (1.8-2.4); POTASSIUM 4.2 mmol/L (3.5-5.1); TOTAL BILIRUBIN 13.2 mg/dL (<0.1-1.0)
--- NOTE | 2019-10-22 08:11 | EKG ---
[place] [address] ELECTROCARDIOGRAM REPORT Name: NIMO VILLEDA Room: [address] IN M.R.#: [id number] Admission: 10/17/19 Attend Phys: Isha Rizvi, Discharge: Date of : 57 Date of Service: 10/22/19 0253 Report #: [id number] THIS REPORT FOR: //name// [facility] Test Date: 2019-10-22 Test Time: 02:53:26 Pat Name: NIMO BLELN Department: Room: [address] Gender: M Leak Gang Supervisor: STEFANIA : 1955 Requested By: Alex Quintana Order Number: [id number] Shannon MD: Sudeep Robertson Measurements Intervals [place] Rate: 100 P: 0 [place]: 298 QRS: 17 QRSD: 84 T: 207 QT: 357 QTc: 461 Interpretive Statements Atrial fibrillation Premature ventricular contractions Anterior infarct, old Borderline ST depression, anterolateral leads Compared to ECG 10/18/2019 07:41:11 Myocardial infarct finding now present ST (T wave) deviation now present Electronically Signed On 10-22-2019 8:09:35 CDT by Sudeep Robertson [email or web address] <ELECTRONICALLY SIGNED> By: Sudeep Robertson MD, FACC 10/22/19 0809 025 2 Sudeep Robertson MD, FACC /EPI
--- NOTE | 2019-10-22 14:10 | CON ---
[address] [address] CONSULTATION Name: NIMO VILLEDA Room: [address] IN ..#: [id number] Admission: 10/17/19 Attend Phys: Isha Rizvi MD Discharge: Date of : 57 Report #: [id number] THIS REPORT FOR: //name// cc: Venus Jacob Sarah Anne FNP ~ THIS REPORT FOR: //name// CC: Isha Jacob NP DATE OF SERVICE: 10/17/2019 REQUESTING PHYSICIAN: Isha Otero MD HISTORY OF PRESENT ILLNESS: This is a 63-year-old male with history of alcoholism and cirrhosis due to the same who presented to hospital with mental status changes, respiratory failure and sepsis. The patient apparently has not been able to try for the past week and has been getting weaker and weaker. The patient was resisting coming to the hospital and her brought him in when he became unresponsive. The patient currently is intubated and on antibiotics for sepsis. PAST MEDICAL HISTORY: Significant for history of alcoholism, cirrhosis, prostate cancer, renal mass, history of colectomy, hypertension, gastroesophageal reflux disease. ALLERGIES: No known drug allergy. MEDICATIONS: Please refer to MAR. SOCIAL HISTORY: The patient lives at home, has been using alcohol and not have been able to try it for the past week. FAMILY HISTORY: Noncontributory. PHYSICAL EXAMINATION: VITAL SIGNS: Reveals blood pressure of 149/56, pulse 98, temperature 38.2. The patient is intubated. LUNGS: Breath sounds are audible both lungs bilaterally. CARDIOVASCULAR: Regular. ABDOMEN: Soft. LABORATORY DATA: Reveals sodium of 134, potassium 3.2, BUN is 39, creatinine 1.5. CK-MB is 20.5, CPK is 417. Troponin is 12.12. Albumin 1.8. WBC is [address] [place] [address] CONSULTATION Name: NIMO VILLEDA Room: [address] IN [facility]#: [id number] Admission: 10/17/19 Attend Phys: Isha Rizvi MD Discharge: Date of : 57 Report #: [id number] with hemoglobin of 18 and platelets of 64. AST is 333, ALT 92, alkaline phosphatase 182 with total bilirubin of 4.4 and lipase of 527. IMAGING: CT of abdomen and pelvis was obtained. There is a very large left renal mass with no evidence of direct invasion. This mass measures 13.4 x 13.3 x 9.6 cm. There is evidence of cirrhosis with portal hypertension and splenomegaly. There is also left renal inferior pole nonobstructive nephrolithiasis noted. ASSESSMENT AND PLAN: The patient with history of alcoholism and cirrhosis due to the same, who comes in with failure to thrive, mental status changes, sepsis and respiratory failure. His transaminases are somewhat above his baseline from 2019, but I believe that this is artificial and is due to rhabdomyolysis as CCK is elevated and INR not much different than before. Also, the ratio of AST to ALT may suggest that the transaminases partly may be coming from muscles. We will continue monitoring his LFTs. I will order GGT. I will also check AFP in reference to his cirrhosis. The patient is very ill with poor prognosis. We will continue to follow. <ELECTRONICALLY SIGNED> By: Camryn Graves MD 10/22/19 1410 1402 [id number] Graves MD /nt
--- NOTE | 2019-10-22 16:16 | EKG ---
[place] [address] ELECTROCARDIOGRAM REPORT Name: NIMO VILLEDA Room: [address] IN .R.#: [id number] Admission: 10/17/19 Attend Phys: Isha Rizvi, Discharge: Date of : 57 Date of Service: 10/22/19 1004 Report #: [id number] THIS REPORT FOR: //name// [facility] Test Date: 2019-10-22 Test Time: 10:04:26 Pat Name: NIMO VILLEDA Department: Room: [address] Gender: M [employer] Up Driver: MILLY : 1955 Requested By: Alex Quintana Order Number: [id number] Reading MD: Alex Quintana Measurements Intervals Tully Rate: 94 P: 266 MD: 218 QRS: 8 QRSD: 87 T: 217 QT: 359 QTc: 449 Interpretive Statements Sinus or ectopic atrial rhythm Prolonged MD interval Low voltage, extremity leads Anteroseptal infarct, old Nonspecific repol abnormality, diffuse leads Lead(s) aVF were not used for morphology analysis Compared to ECG 10/22/2019 02:53:26 Ectopic atrial rhythm now present First degree AV block now present Atrial fibrillation no longer present Ventricular premature complex(es) no longer present Myocardial infarct finding still present Electronically Signed On 10-22-2019 16:15:01 CDT by Alex Quintana [email or web address] <ELECTRONICALLY SIGNED> By: Alex Quintana MD, [facility] 10/22/19 1615 1004 1004 Alex Quintana MD, [facility] /EPI
[2019-10-23] VITALS (118 sets, daily range): BP systolic 40–259; BP diastolic 21–205
[2019-10-23 09:21] LABS: HEMATOCRIT 39.6 % (42.0-52.0); HEMOGLOBIN 12.8 gm/dL (14.0-18.0); MCH 28.7 pg (26.0-34.0); MCHC 32.3 g/dL (28.0-37.0); MCV 88.7 fL (80.0-100.0); MPV 9.2 fl. (7.2-11.1); NUCLEATED RBCS 2 /100WBC; PLATELET COUNT* 197 thou/uL (150-400); RBC 4.46 mil/uL (4.50-6.00); RDW-CV 17.2 % (10.5-14.5); WBC 36.8 thou/uL (4.0-11.0)
[2019-10-23 09:30] LABS: INR 1.5; PROTIME 15.5 Seconds (9.20-11.50)
[2019-10-23 09:48] LABS: CALCIUM 6.2 mg/dL (8.5-10.1); CREATININE 4.1 mg/dL (0.6-1.3); MAGNESIUM 2.3 mg/dL (1.8-2.4); POTASSIUM 5.1 mmol/L (3.5-5.1); TOTAL BILIRUBIN 13.7 mg/dL (<0.1-1.0); TOTAL PROTEIN 4.9 g/dL (6.4-8.2)
[2019-10-23 09:58] LABS: ABSOLUTE LYMPHOCYTES 2.6 thou/uL (0.8-5.3); ABSOLUTE NEUTROPHILS 34.2 thou/uL (1.6-8.1); PLATELET ESTIMATE ADEQUATE
[2019-10-23 09:59] LABS: ANISOCYTOSIS 1+; TOXIC GRANULATION Occasional
[2019-10-23 10:00] LABS: BURR CELLS Occasional; OVALOCYTES Occasional; POLYCHROMASIA Occasional
--- NOTE | 2019-10-26 12:29 | CON ---
[address] [address] CONSULTATION Name: NIMO VILLEDA Room: [address] IN .R.#: [id number] Admission: 10/17/19 Attend Phys: Isha Rizvi MD Discharge: 10/23/19 Date of : 57 Report #: [id number] THIS REPORT FOR: //name// cc: Venus Jacob Sarah Anne FNP THIS REPORT FOR: //name// CC: Isha Jacob DATE OF SERVICE: 10/17/2019 CARDIOLOGY CONSULTATION HISTORY OF PRESENT ILLNESS: I was asked by Dr. Isha Rizvi to see this 63-year-old white male in Cardiology consultation for evaluation and treatment of a possible myocardial infarction. This man is unresponsive and cannot give a history. History was obtained from the chart. He was sick for a week according to his . He was unresponsive for 2 days before finally coming to the hospital apparently. He does have a history of alcoholic liver disease and alcoholism. He came to the Emergency Room and was found to have troponin that was elevated initially. He apparently had not had chest pain, although it is not known. He is poorly responsive at best. His initial troponin was 8.28 that was shortly after midnight, one at about 3:45 a.m. was 11.6, and I believe another one was 12 three or four hours later. He does have, on his EKG, minimal but appreciable ST segment elevation in I, a little bit in II, and definitely in V5 and V6. These are compatible with an acute ST elevation VA. He was not considered a reasonable candidate for the catheterization lab apparently by the ER as we were not called. He also has an old anteroseptal VA on his EKG. We do not as yet have old EKGs for comparison and we were obtaining them. There are Q-waves in V1 and V2. He does have low voltage in his limb leads and for that matter fairly low voltage in his chest leads. He appears to have some degree of congestive heart failure on his chest x-ray and a CT of the chest. There is also an NT-proBNP of 10,588. Other problems include pneumonia on his chest x-ray apparently multifocal. There is a small area of infiltrate that has a ground glass appearance in the left apical region. It could be a semi-solid density. It is not very large, 1.2 x 1.2 x 1.8 cm. The radiologist favored pneumonitis, but malignancy was conceivable. There is a right basilar consolidative atelectasis versus infiltration. He has cirrhosis with portal hypertension and splenomegaly as well. He is in atrial fibrillation with a rapid ventricular response. His blood pressure has been at the low end of normal. He was felt to have pneumonia. He does have hyponatremia with a sodium of 129. He does have lactic acidosis. His bicarbonate, I believe, was 19 and I believe his lactate was 7. He has a history of prostate cancer. He has a large renal cell cancer that is 13.4 x 13.3 x 9.6 in the left superior pole. There is a possible wedge-shaped infarct in the left renal area. CT of the head was [facility] [address] [facility] [place] [address] CONSULTATION Name: NIMO VILLEDA Room: [address] IN .R.#: [id number] Admission: 10/17/19 Attend Phys: Isha Rizvi MD Discharge: 10/23/19 Date of : 57 Report #: [id number]. There was no acute process. He was felt to be septic. His white blood cell count is 48,000 this morning and was 40,000 when he came in. He also has chronic polycythemia. His hemoglobin was 20 and his hematocrit was 59.9. He also has thrombocytopenia. His platelet count was 102,000. His BNP was 10,800. He has a history of essential hypertension. He does have a UTI with a lot of white cells and bacteria in his urine. He also has a past history of prostate cancer. He has a history of alcoholism and he does have, on his CT, cirrhosis with portal hypertension. He has refused treatment for his renal cell cancer in the past. He did have a troponin elevation a year ago on admission here. It was small though, only 0.4. He refused a stress test for that. On his drug screen, he had marijuana positivity in his urine, but no other abnormalities. He has now been intubated. REVIEW OF SYSTEMS: Unobtainable. SOCIAL HISTORY: Unobtainable, although from the record he has not been a smoker. He has been a drinker. He is . He never used smokeless tobacco. FAMILY HISTORY: Included heart disease in her mother. She was in her 50s or 60s. It is unknown what his father of or how old he was when he . PAST SURGICAL HISTORY: He apparently has had a partial colectomy in the past. I suppose it is possible that he may have had colon cancer in the past. ALLERGIES: He has no known allergies. HOME MEDICATIONS: A year ago when he was seen in our clinic included aspirin 81 mg daily, folic acid 1 mg daily, Protonix 40 mg daily, quinapril 40 mg nightly, Xifaxan or rifaximin 550 mg daily, Flomax 0.4 mg daily, and p.r.n. tramadol 50 mg q. 6 hours. Home meds currently were unchanged from the past. PHYSICAL EXAMINATION: GENERAL: He presents as a well-developed, well-nourished, disheveled, and unresponsive white male. He was unshaven. VITAL SIGNS: Blood pressure was 105/60. His temperature was 38.2. His pulse was 110 when I saw him. His pulse ox was 98. His respirations were 35. He was not on the ventilator at that point, he was on 2 liters of oxygen. HEENT: His head was atraumatic. There were injected conjunctivae. LUNGS: Bilateral coarse breath sounds. HEART: Revealed a rapid irregular rhythm. There were no murmurs, rubs, thrills, heaves, or gallops. PMI is not displaced. ABDOMEN: Soft, flat, and apparently nontender. There was organomegaly. The liver and spleen could be felt minimally. EXTREMITIES: Revealed no cyanosis, clubbing, or edema. He was poorly responsive. He [place] [address] CONSULTATION Name: NIMO VILLEDA Room: [address] IN M.R.#: [id number] Admission: 10/17/19 Attend Phys: Isha Rizvi MD Discharge: 10/23/19 Date of : 57 Report #: [id number] IMPRESSION: 1. Acute lateral ST elevation myocardial infarction. 2. Status post anteroseptal myocardial infarction. 3. Congestive heart failure. 4. Atrial fibrillation with a rapid ventricular response. 5. Pneumonia. 6. Hyponatremia. 7. Lactic acidosis. 8. Prostate cancer. 9. Elevated D-dimer at 17.7. 10. Possible COVID-19. 11. Cirrhosis. 12. Alcoholism. 13. History of high blood pressure. 14. Metabolic encephalopathy. 15. Renal cell cancer. 16. Polycythemia. 17. Thrombocytopenia. RECOMMENDATIONS: He is too ill to go to the catheterization lab. He is basically in septic shock. He needs to be supported at this point. I would give him aspirin and heparin at this point. Try to control his rate with diltiazem and digoxin. If we fail then we will have to go to amiodarone. Thank you very much for asking me to see the patient. If there are any questions, please feel free to contact me. Unfortunately, this man's prognosis is poor. <ELECTRONICALLY SIGNED> By: Elif Escobedo MD, FACC 10/26/19 1229 1013 [id number]. Eyad Escobedo MD, FACC /nt
== END 2019-10-23 18:30 | DRG 870 ==
LOC: M.ERS 00:24 → M.TBA-ER 03:22 → M.ICU 03:22
PROVIDERS: Emergency Medicine; Internal Medicine; ADMIT Internal Medicine
PROC: 5A1955Z Respiratory Ventilation, Greater than 96 Consecutive Hours (ICD-10-PCS; principal; 2019-10-17)
PROC: B548ZZA Ultrasonography of Superior Vena Cava, Guidance (ICD-10-PCS; principal; 2019-10-17)
PROC: 0BH17EZ Insertion of Endotracheal Airway into Trachea, Via Natural or Artificial Opening (ICD-10-PCS; principal; 2019-10-17)
PROC: 02HV33Z Insertion of Infusion Device into Superior Vena Cava, Percutaneous Approach (ICD-10-PCS; principal; 2019-10-17)
PROC: 06HY33Z Insertion of Infusion Device into Lower Vein, Percutaneous Approach (ICD-10-PCS; 2019-10-20)
DX: A41.2 Sepsis due to unspecified staphylococcus (principal); J96.01 Acute respiratory failure with hypoxia; G93.41 Metabolic encephalopathy; I21.3 ST elevation (STEMI) myocardial infarction of unspecified site; R65.21 Severe sepsis with septic shock; N17.0 Acute kidney failure with tubular necrosis; K72.00 Acute and subacute hepatic failure without coma; J69.0 Pneumonitis due to inhalation of food and vomit; I48.20 Chronic atrial fibrillation, unspecified; E87.1 Hypo-osmolality and hyponatremia; K56.7 Ileus, unspecified; K55.9 Vascular disorder of intestine, unspecified; F10.239 Alcohol dependence with withdrawal, unspecified; N30.00 Acute cystitis without hematuria; K76.6 Portal hypertension; J93.9 Pneumothorax, unspecified; F12.90 Cannabis use, unspecified, uncomplicated; K74.60 Unspecified cirrhosis of liver; N28.89 Other specified disorders of kidney and ureter; D69.6 Thrombocytopenia, unspecified; E83.51 Hypocalcemia; Y90.9 Presence of alcohol in blood, level not specified; R16.1 Splenomegaly, not elsewhere classified; K21.9 Gastro-esophageal reflux disease without esophagitis; I11.0 Hypertensive heart disease with heart failure; I50.9 Heart failure, unspecified; L89.309 Pressure ulcer of unspecified buttock, unspecified stage; Z66 Do not resuscitate; Z20.828 Contact with and (suspected) exposure to other viral communicable diseases; I25.2 Old myocardial infarction; Z90.49 Acquired absence of other specified parts of digestive tract; Z85.46 Personal history of malignant neoplasm of prostate; Z79.82 Long term (current) use of aspirin; Z79.899 Other long term (current) drug therapy